=== PATIENT | male | born 1965 | race Caucasian/White ===

== ENCOUNTER 2024-04-23 23:12 | Emergency (ER) | payer OTHER, SELFPAY ==
[2024-04-23 23:24] VITALS: BP 134/80
--- NOTE | 2024-04-24 00:30 | EDRN ---
stitch on the top and that is where it is bleeding from. No bleeding noted at present.
[2024-04-24 00:34] LABS: INR 2.87
--- NOTE | 2024-04-24 01:02 | ED.GENMED ---
History of Present Illness
General
Chief Complaint: Dental Problem
Source: patient
Exam Limitations: none
Time Seen by Provider: 04/24/24 00:11
Nursing documentation reviewed up to this point in time: agreed with
History of Present Illness
History of Present Illness:
This is a 58-year-old gentleman who has history of A-fib chronically maintained on Coumadin. Maintained on Coumadin due to NOACs are cost prohibitive. He follows with a web marketing assistant and is planning for A-fib ablation. As such he has been
following with an oral surgeon and underwent multiple mandibular dental extractions a week and a half ago. He has had intermittent bleeding from his gums on the right side, he believes from a sutured area right maxillary gingiva. He had previous
maxillary dental extractions and wears upper dentures. He states he believes the dentist must have 'nicked him' during recent mandibular dental extractions as he noticed 2 sutured areas right maxillary gingiva. He believes this is the site where
he has had intermittent bleeding over the past week which initially began Wednesday a week ago. Bleeding generally stops with local pressure and/or with gargling with salt water until tonight when bleeding seem to persist for several hours prompting
ED visit.
Since arrival to the ED however bleeding has subsided without return.
He has continued to soft diet, admits that gingival pain has been improving throughout the past week and a half. He has not had a fever nor chills. He has not noticed local swelling nor redness of his gums. He denies sore throat, no difficulty
swallowing. He denies dizziness nor lightheadedness, no chest pain or palpitations, no coughing or shortness of breath.
He monitors his INR at home and 2 days ago was 2.1.
Chronically maintained on 10 mg daily.
Past History
Past History
ED Past Medical History: Arrthythmia (Atrial fibrillation), GERD, HTN, Hypercholesterolemia, NIDDM and Psychiatric
ED Past Surgical History: Appendectomy
Social History
Tobacco: Non-smoker
Alcohol: None
Personal:
Living: with family
Employment: Not employed
Family History
Family History: Other (Noncontributory)
Phy Exam
Physical Exam
Physical Exam:
GENERAL: 58-year-old gentleman appears somewhat older than stated age, bright and alert, pleasant, easily communicative and in no acute distress.
EYE: anicteric. Conjunctiva are dark pink.
NECK: Supple, nontender, no meningismus, no significant adenopathy. No facial edema nor erythema.
ENT: posterior pharynx is clear, oral mucosa is moist. Edentulous. There are multiple intact sutures along the mandibular gingiva as well as to intact sutures right maxillary gingiva. There is no active bleeding, no evidence of recent bleeding,
no erythema, no edema. Minimal tenderness along the superior aspect of mandibular gingiva. There is no tenderness to the maxillary gingiva. TM clear b/l, nares patent.
CARDIAC: Regular rate and rhythm. no murmur.
LUNGS: No respiratory distress.
ABDOMEN: Soft, nondistended, without focal tenderness
NEUROLOGICAL: Alert and oriented x3, no focal neuro deficits. Gait is marlow and steady.
SKIN: Warm and dry, normal color, skin intact. No rash.
MUSCULOSKELETAL: No C/C/E. peripheral pulses are full and equal b/l. No palpable tenderness.
PSYCH: Normal and appropriate interaction.
Course
Orders/Labs/Results
Orders:
Orders
04/23/24 23:43
Prothrombin Time Urgent
Abnormal Lab Results
04/24/24
00:17
PT 30.0 H Sec
(11.4-14.6)
Vital Signs
Initial and Last Documented VS:
Initial Vital Signs
Temp Pulse Resp BP Pulse Ox
97.9 F 68 24 134/80 97
04/23/24 23:24 04/23/24 23:24 04/23/24 23:24 04/23/24 23:24 04/23/24 23:24
Last Documented Vital Signs
Temp Pulse Resp BP Pulse Ox
97.9 F 68 24 134/80 97
04/23/24 23:24 04/23/24 23:24 04/23/24 23:24 04/23/24 23:24 04/23/24 23:24
MDM/Problems Addressed
Differential Diagnosis Includes:
Patient presents with intermittent gingival bleeding after multiple dental extractions 1-1/2 weeks ago.
Patient is adentulous and exam is notable for multiple sutures along the mandibular gingiva as well as 2 sutures right maxillary gingiva. There is no bleeding and no definitive evidence of recent bleeding. There is no erythema, no soft tissue
swelling, no facial swelling.
INR is 2.87.
Nothing in history nor exam to suggest acute blood loss anemia. Vital signs within normal limits.
Recommend he hold his Coumadin tomorrow and then if no recurrent bleeding resume usual dose the following day.
Recommend prompt follow-up with oral surgeon as well as his PCP.
If bleeding recurs recommend he bite hard on a moist teabag.
If this is ineffective, prompt return to the ED for further evaluation.
Chronic conditions affecting care: Arrhythmia
*Pulse Oximetry
Patient hypoxic: no
*Critical Care Note
Total Time (30-74mins, 75-104mins- exclusive of procedures): Not Applicable
ED Attending Note
-
Portions of this chart may have been created with voice recognition software.� Occasional wrong word or��sound alike� substitutions may have occurred due to the inherent limitations of voice recognition software.
Discharge Plan
Departure
Patient Disposition: Home (Routine Discharge)
Date of Disposition: 04/24/24
Time of Disposition: 01:02
Patient with high blood pressure during this ER visit?: No
Condition: Good
Discharge Problem:
post-operative dental bleeding
Instructions: Bleeding Gums (DC)
Referrals:
Reji Tai MD [Family Provider] - Call in 1-3 days for appt (call your PCP tomorrow to discuss bleeding gum and coumadin dosing.)
Activity Restrictions/Additional Instructions:
Continue soft diet.
I recommend you hold your Coumadin dose for tomorrow, resume your regular dose on Wednesday.
Call your PCP tomorrow as well as oral surgeon to schedule follow-up.
If bleeding recurs I recommend you moisten a teabag and bite hard on the teabag at site of bleeding. Continue to bite hard for at least 5 to 10 minutes.
If this is ineffective. You can try gargling with ice water and continue local pressure.
If bleeding persists despite these measures, return to the ED for further evaluation.
Interventions
Interventions:
*Risk Screen - Suicide Last Done: 04/23/24 23:24
*General Assessment Last Done: 04/23/24 23:43
*Neglect/Abuse Screening Last Done: 04/23/24 23:24
ED- Fall Risk Assessment Last Done: 04/23/24 23:43
*ED COVID-19 Vaccine History Last Done: 04/23/24 23:43
Discharge Date and Time
Print Language: INDONESIAN
[2024-04-24 01:25] VITALS: BP 107/70
== END 2024-04-24 01:25 | disposition home or self-care (01) ==
LOC: EMR 23:12
PROVIDERS: EMERGENCY PHYSICIAN Emergency Medicine; FAMILY PHYSICIAN Internal Medicine
DX: K91.841 Postprocedural hemorrhage of a digestive system organ or structure following other procedure (principal); K08.89 Other specified disorders of teeth and supporting structures; I48.91 Unspecified atrial fibrillation; K21.9 Gastro-esophageal reflux disease without esophagitis; I10 Essential (primary) hypertension; E11.9 Type 2 diabetes mellitus without complications; E78.00 Pure hypercholesterolemia, unspecified; F41.9 Anxiety disorder, unspecified; Z79.01 Long term (current) use of anticoagulants; F32.A Depression, unspecified; Z79.84 Long term (current) use of oral hypoglycemic drugs; Z91.041 Radiographic dye allergy status
CPT/HCPCS: 99283; 85610